=== PATIENT | male | born 1935 | race Caucasian/White ===

== ENCOUNTER → 2016-11-06 | Outpatient (REF) | payer MEDICARE, OTHER ==
[2016-11-06 19:06] LABS: FOLATE 16.1 NG/ML (>5.4); VITAMIN B12 LEVEL 519 PG/ML (247-911)
[2016-11-06 19:10] LABS: TOTAL PROTEIN 6.4 GM/DL (6.4-8.2)
[2016-11-10 12:48] LABS: ALBUMIN 4.01 GM/DL (3.29-5.55); ALBUMIN % 62.7 % (55.8-66.1); GAMMA GLOBULIN % 13.7 % (11.1-18.8)
[2016-11-12 00:10] LABS: VITAMIN E LEVEL 15.1 mg/L (5.3-17.5)
== END ==
LOC: M LAB REF 16:56
PROVIDERS: ATTEND Family Medicine
DX: R41.81 Age-related cognitive decline (principal)